=== PATIENT | male | born 1945 | race Caucasian/White ===

== ENCOUNTER 2020-09-26 09:11 | Outpatient (CLI) | payer MEDICARE ==
[~2020-09-26] VITALS: Ht 170.2 cm; Wt 79.0 kg
[2020-09-26] MEDS ORDERED: OMEP-110 PO (09:47)
[2020-09-26 10:14] LABS: BASOPHILS % (AUTO) 1 % (0-1); EOSINOPHILS % (AUTO) 2 % (1-7); LYMPHOCYTES % (AUTO) 18 % (22-44); MEAN CORPUSCULAR HEMOGLOBIN 32.7 pg (27.5-34.5); MEAN CORPUSCULAR HGB CONC 34.4 g/dL (33.2-36.2); MEAN PLATELET VOLUME 7.8 fL (7.4-10.4); MONOCYTES % (AUTO) 10 % (2-9); NEUTROPHILS % (AUTO) 70 % (42-75); PLATELET COUNT 280 x10^3/uL (130-400); RED BLOOD COUNT 4.88 x10^6/uL (4.38-5.82); RED CELL DISTRIBUTION WIDTH 13.3 % (9.4-14.8)
[2020-09-26 10:20] LABS: MD NO
[2020-09-26 10:23] LABS: CREATININE 0.97 mg/dL (0.7-1.3)
[2020-09-26 10:24] LABS: INTERNATIONAL NORMALIZED RATIO 1.02 (0.93-1.1); PROTHROMBIN TIME 10.9 Seconds (9.6-11.5)
== END 2020-09-26 23:59 | disposition home or self-care (01) ==
LOC: STAR 09:11
PROVIDERS: ATTEND Surgery
DX: Z01.812 Encounter for preprocedural laboratory examination (principal); Z20.822 Contact with and (suspected) exposure to COVID-19
CPT/HCPCS: 36415; 82565; 84520; 85025; 85610; 85730; U0003; U0005

== ENCOUNTER 2020-10-02 06:54 | Day surgery (SDC) | payer MEDICARE ==
[~2020-10-02] VITALS: Ht 170.2 cm; Wt 75.2 kg
[~2020-10-02 06:54] MED LIST: OMEP-110 PO
[2020-10-02 07:11] VITALS: BP 184/84
[2020-10-02] MEDS ORDERED: LIDOCAINE 1%, 10ML ONE ×2 (07:11→07:53)
[2020-10-02] MEDS ORDERED: PROTAMINE SULFATE 10 MG/ML, 25ML ONE (07:21)
[2020-10-02] MEDS ORDERED: MIDAZOLAM 1 MG/ML, 5ML ONE (07:21)
[2020-10-02] MEDS ORDERED: NALOXONE 1 MG/ML, 2ML ONE (07:21)
[2020-10-02] MEDS ORDERED: FLUMAZENIL 0.1 MG/1 ML, 5ML ONE (07:21)
[2020-10-02] MEDS ORDERED: HEPARIN 1,000 UNITS/ML, 10ML ONE (07:21)
[2020-10-02] MEDS ORDERED: FENTANYL PF 100 MCG/2ML ONE (07:21)
[2020-10-02] MEDS ORDERED: SODIUM CHLORIDE 0.45% 1,000 ML IV SCH (07:30)
[2020-10-02] MEDS ORDERED: VISIPAQUE 270 MG/ML, 50ML BOTTLE ONE (08:00)
== END 2020-10-02 11:05 | disposition home or self-care (01) ==
LOC: OUT 06:54
PROVIDERS: ATTEND Surgery
DX: I70.201 Unspecified atherosclerosis of native arteries of extremities, right leg (principal); J44.9 Chronic obstructive pulmonary disease, unspecified; K21.9 Gastro-esophageal reflux disease without esophagitis; Z98.890 Other specified postprocedural states; Z79.899 Other long term (current) drug therapy; Z85.828 Personal history of other malignant neoplasm of skin; Z85.51 Personal history of malignant neoplasm of bladder; Z72.89 Other problems related to lifestyle; Z87.891 Personal history of nicotine dependence
CPT/HCPCS: 37221; 75625; 75716; 99156; 99157; C1725; C1751; C1760; C1769; C1876; C1894; J1644; J2250; J2720; J3010; Q9966; 75710; 76937; J2310